=== PATIENT | female | born 1985 | race Two or more races ===

== ENCOUNTER 2019-10-27 09:29 | Emergency (ER) | payer BC, OTHER ==
[~2019-10-27] VITALS: Ht 144.8 cm; Wt 64.4 kg
[2019-10-27 09:41] VITALS: BP 144/94
== END 2019-10-27 11:53 | disposition home or self-care (01) ==
LOC: ER 09:29
DX: J06.9 Acute upper respiratory infection, unspecified (principal)
CPT/HCPCS: 71045

== ENCOUNTER 2021-09-09 07:38 | Emergency (ER) | payer BC, MEDICAID ==
[~2021-09-09] VITALS: Ht 144.8 cm; Wt 68.0 kg
[2021-09-09] MEDS ORDERED: KETOROLAC TROMETH 30 MG/ML 1ML VIAL IV ONE (08:30)
[2021-09-09] MEDS ORDERED: SODIUM CHLORIDE 0.9% 1,000 ML IV ONE ×2 (08:30)
[2021-09-09] MEDS ORDERED: TAMSULOSIN HYDROCHLORIDE 0.4 MG CAP PO ONE (08:30)
[2021-09-09 09:06] LABS: Basophils # (auto) 0 10 ^3/uL (0-0.2); Basophils % (auto) 0.4 % (0.0-2.0); Eosinophils # (auto) 0.1 10 ^3/uL (0-0.8); Eosinophils % (auto) 1.2 % (0.0-7.0); Hematocrit 42.1 % (36.0-46.0); Hemoglobin 14.4 g/dL (12.2-16.2); Lymphocytes # (auto) 1.5 10 ^3/uL (0.4-5.4); Lymphocytes % (auto) 13.2 % (10.0-50.0); Mean Corpuscular Hemoglobin 31.4 pg (28.0-32.0); Mean Corpuscular Hgb Conc. 34.3 g/dL (32.0-36.0); Mean Corpuscular Volume 91.5 fL (80.0-100.0); Monocytes # (auto) 0.6 10 ^3/uL (0-1.3); Monocytes % (auto) 5.7 % (0.0-12.0); Neutrophils # (auto) 8.9 10 ^3/uL (1.6-8.6); Neutrophils % (auto) 79.5 % (37.0-80.0); Red Cell Distribution Width 12.7 % (11.8-14.3); White Blood Cell 11.1 10^3/uL (4.4-10.8)
[2021-09-09 09:22] LABS: Albumin 3.8 g/dL (3.4-5.0); Calcium 8.7 mg/dL (8.5-10.1)
[2021-09-09 09:25] LABS: BUN/Creatinine Ratio 16.7; Bilirubin, Total 0.6 mg/dL (0.2-1.0); Total Protein 7.4 g/dL (6.4-8.2)
[2021-09-09 09:38] LABS: Urine Bacteria NONE SEEN /hpf (None Seen); Urine Blood 3+ /uL (Negative); Urine Specific Gravity 1.023 (1.001-1.035); Urine WBC 579 /hpf (0 - 5); Urine WBC Clumps PRESENT /hpf (None Seen)
[2021-09-09 10:32] VITALS: BP 104/61
[2021-09-09] MEDS ORDERED: NITR-87 PO (10:42)
[2021-09-09] MEDS ORDERED: cefTRIAXone 1GM/50ML D5W 50 ML IV ONE (10:45)
== END 2021-09-09 11:08 | disposition home or self-care (01) ==
LOC: ER 07:38
DX: N39.0 Urinary tract infection, site not specified (principal)
CPT/HCPCS: 36415; 74176; 80053; 81001; 85025; 96361; 96365; 96375; 99284; J0696; J1885; J7030

== ENCOUNTER 2023-11-20 08:03 | Emergency (ER) | payer MEDICAID ==
[~2023-11-20] VITALS: Ht 144.8 cm; Wt 55.7 kg
[~2023-11-20 08:03] MED LIST: NITR-87 PO
[2023-11-20 08:22] VITALS: BP 113/76; PULSE 98; RESP 20; O2SAT 98
[2023-11-20 08:38] LABS: Basophils # (auto) 0 10 ^3/uL (0-0.2); Basophils % (auto) 0.2 % (0.0-2.0); Eosinophils # (auto) 0 10 ^3/uL (0-0.8); Eosinophils % (auto) 0.1 % (0.0-7.0); Hematocrit 37.5 % (36.0-46.0); Hemoglobin 13.5 g/dL (12.2-16.2); Lymphocytes # (auto) 0.7 10 ^3/uL (0.4-5.4); Mean Corpuscular Hemoglobin 32.5 pg (28.0-32.0); Mean Corpuscular Hgb Conc. 35.9 g/dL (32.0-36.0); Mean Corpuscular Volume 90.7 fL (80.0-100.0); Monocytes # (auto) 1.2 10 ^3/uL (0-1.3); Monocytes % (auto) 8.2 % (0.0-12.0); Neutrophils # (auto) 12.3 10 ^3/uL (1.6-8.6); Neutrophils % (auto) 86.5 % (37.0-80.0); Platelet Count (auto) 209 10^3/uL (140-450); Red Blood Cells 4.14 10^6/uL (4.0-5.20); Red Cell Distribution Width 12.6 % (11.8-14.3); White Blood Cell 14.3 10^3/uL (4.4-10.8)
[2023-11-20 08:41] LABS: Urine Bacteria FEW /hpf (None Seen); Urine Blood 1+ /uL (Negative); Urine Clarity Turbid (Clear); Urine Color Yellow (Yellow); Urine Mucus MODERATE (None Seen); Urine Protein, UAD 1+ (Negative); Urine Specific Gravity 1.022 (1.001-1.035); Urine Urobilinogen Normal (Negative); Urine WBC 183 /hpf (0 - 5)
[2023-11-20] MEDS: ACETAMINOPHEN 500 MG TAB PO ONE (08:59)
[2023-11-20 09:11] LABS: Albumin 4.2 g/dL (3.2-4.8); Alkaline Phosphatase 88 U/L (46-116); Anion Gap 8 (5-15); Aspartate Aminotransferase 8 U/L (13-40); Calcium 9.4 mg/dL (8.7-10.4); Carbon Dioxide 23 mmol/L (20-30); Chloride 105 mmol/L (98-107); Glucose 96 mg/dL (74-106); Lipase 28 U/L (12-53); Sodium 136 mmol/L (136-145)
[2023-11-20 09:12] LABS: Bilirubin, Total 0.6 mg/dL (0.2-1.0); Total Protein 6.9 g/dL (5.7-8.2)
[2023-11-20 09:15] LABS: Alanine Aminotransferase < 9 U/L (7-40); Blood Urea Nitrogen < 5 mg/dL (9-23)
[2023-11-20] MEDS: POTASSIUM CHL 20 Meq TABLET PO ONE (09:30)
[2023-11-20] MEDS: SODIUM CHLORIDE 0.9% 1,000 ML IV ONE ×2 (09:30→10:37)
[2023-11-20] MEDS: ONDANSETRON HCL 4 MG/2 ML VIAL IV ONE (09:38)
[2023-11-20] MEDS: cefTRIAXone 1GM/50ML D5W 50 ML IV ONE (09:38)
[2023-11-20] MEDS: KETOROLAC TROMETH 30 MG/ML 1ML VIAL IV ONE (10:36)
[2023-11-20 10:39] VITALS: TEMP 98.7
[2023-11-20] MEDS ORDERED: CIPR-173 PO (11:35)
[2023-11-20] MEDS ORDERED: IBUP1TAB5 PO (11:35)
== END 2023-11-20 11:43 | disposition home or self-care (01) ==
LOC: ER 08:03
DX: N39.0 Urinary tract infection, site not specified (principal); R10.2 Pelvic and perineal pain; N10 Acute pyelonephritis; E87.6 Hypokalemia; Z79.1 Long term (current) use of non-steroidal anti-inflammatories (NSAID); Z79.899 Other long term (current) drug therapy
CPT/HCPCS: 36415; 74176; 80053; 81001; 81025; 83690; 84702; 85025; 87086; 96365; 96375; 99285; J0696; J1885; J2405; J7030

== ENCOUNTER → 2024-07-11 | Outpatient (CLI) | payer MEDICAID ==
[~2024-07-11] MED LIST changes: +CIPR-173 PO; +IBUP1TAB5 PO
== END | disposition home or self-care (01) ==
LOC: LAB 10:56
DX: Z01.812 Encounter for preprocedural laboratory examination (principal); L91.8 Other hypertrophic disorders of the skin; Q52.4 Other congenital malformations of vagina

== ENCOUNTER → 2024-07-24 | Outpatient (CLI) | payer MEDICAID | END | disposition home or self-care (01) | LOC: LAB 10:00 | DX: Z01.812 Encounter for preprocedural laboratory examination (principal); L91.8 Other hypertrophic disorders of the skin ==